=== PATIENT | female | born 1955 | race Caucasian/White ===

== ENCOUNTER 2017-02-01 03:12 | Inpatient (IN) ==
[2017-02-01] MEDS ORDERED: SODIUM CHLORIDE 0.9% 2,450 ML IV ONE (03:36)
[2017-02-01] MEDS ORDERED: KETAMINE 500 MG/10 ML VIAL IV STA (03:36)
[2017-02-01] MEDS ORDERED: KETAMINE 500 MG/10 ML VIAL ONE (03:37)
[2017-02-01] MEDS ORDERED: CEFEPIME 2,000 MG in SODIUM CHLORIDE 0.9% 100 ML IV STA (03:41)
[2017-02-01] MEDS ORDERED: NOREPINEPHRINE 4 MG/4 ML VIAL IV ONE ×2 (03:58→13:09)
[2017-02-01] MEDS ORDERED: NOREPINEPHRINE 8 MG in SODIUM CHLORIDE 0.9% 242 ML IV SCH (04:00)
[2017-02-01] MEDS ORDERED: SUCCINYLCHOLINE 200 MG/10 ML VIAL IV STA (04:01)
[2017-02-01] MEDS ORDERED: ETOMIDATE 20 MG/10 ML VIAL IV STA (04:01)
[2017-02-01 04:04] LABS: Basophils % 0.2 % (0.0-0.8); Hematocrit 41.2 VOL% (35.7-47.0); Hemoglobin 13.4 GM/DL (12.0-16.0); Immature Granulocytes % 0.7 %; Immature Granulocytes Absolute 0.08 #; Lymphocytes # 2.2 10*3/uL (1.4-4.0); Lymphocytes % 18.5 % (21.3-54.2); Mean Corpuscular HGB Conc 32.5 GM/DL (32-36); Mean Corpuscular Hemoglobin 32 PG (27-34); Mean Corpuscular Volume 99.5 FL (87-102); Mean Platelet Volume 11.3 FL (9.6-12.0); Monocytes # 0.5 10*3/uL (0.11-0.8); Monocytes % 4.5 % (1.7-12.7); Neutrophils # 9.2 10*3/uL (1.4-7.4); Neutrophils % 76.1 % (38.7-73.9); Platelet Count 165 T/CUMM (130-400); Red Blood Count 4.14 MC/CUMM (3.8-5.5); Red Cell Distribution Width 13.8 % (9.3-17.3); White Blood Count 12.1 T/CUMM (4-12)
[2017-02-01 04:14] LABS: ABG Base Excess -6.5 MMOL/L (-2.5-2.5); ABG HCO3 17.5 MMOL/L (20-26); ABG Oxygen Saturation 96.7 % (95-100); ABG PCO2 30.6 MM HG (35-48); ABG PH 7.376 (7.35-7.45); ABG PO2 94.2 MM HG (80-95); ABG TCO2 18.5 MMOL/L (23-27)
[2017-02-01] MEDS ORDERED: SUCCINYLCHOLINE 200 MG/10 ML VIAL ONE (04:14)
[2017-02-01] MEDS ORDERED: ETOMIDATE 20 MG/10 ML VIAL IV ONE (04:14)
[2017-02-01 04:15] LABS: Lactic Acid 6.4 MMOL/L (0.4-2.0)
[2017-02-01 04:17] LABS: Amorphous Crystals,Urine Occasional /HPF (Few); Apearance,Urine CLOUDY (Clear); Bacteria,Urine Occasional /HPF (Few); Bilirubin,Urine Negative (Negative); Blood, Urine Negative (Negative); Glucose,Urine (UA) 50 mg/dL (Negative); Hyaline Casts,Urine 10 /LPF (0-3); Ketones,Urine 20 mg/dL (Negative); Mucus,Urine Occasional /LPF (Occasional); Nitrite,Urine Negative (Negative); Protein,Urine 100 MG/DL; RBC,Urine 1 /HPF (0-4); Squamous Epithelial Cell,Urine Occasional /HPF (0-10); Urine Color Yellow (Yellow); WBC,Urine 4 /HPF (0-6)
[2017-02-01 04:20] LABS: Albumin 3.4 G/DL (3.4-5.0); Calcium 8.5 MG/DL (8.5-10.1); Potassium 5.1 MMOL/L (3.5-5.1); Total Protein 7.1 G/DL (6.4-8.3)
[2017-02-01] MEDS ORDERED: VECURONIUM 10 MG VIAL IV ONE (04:22)
[2017-02-01] MEDS ORDERED: VECURONIUM 10 MG VIAL IV STA (04:24)
[2017-02-01] MEDS ORDERED: VANCOMYCIN INJ 1,250 MG in SODIUM CHLORIDE 0.45% 250 ML IV SCH (04:30)
[2017-02-01] MEDS ORDERED: GLUCAGON 1 MG VIAL IM PRN (05:06)
[2017-02-01] MEDS ORDERED: DEXTROSE 50% 25 GM/50 ML VIAL IV PRN (05:06)
[2017-02-01] MEDS ORDERED: ONDANSETRON 4 MG/2 ML VIAL IV PRN (05:06)
[2017-02-01] MEDS ORDERED: ALBUTEROL 2.5 MG/3 ML NEB RESP TX PRN (05:06)
[2017-02-01] MEDS ORDERED: MIDAZOLAM 2 MG/2 ML VIAL IV ONE (05:06)
[2017-02-01] MEDS ORDERED: PANTOPRAZOLE 40 MG VIAL IV SCH (05:30)
[2017-02-01] MEDS: INSULIN REGULAR 100 UNIT/ML SUBCUT SCH ×3 (06:40→18:05)
[2017-02-01] MEDS ORDERED: SODIUM CHLORIDE 0.9% 1,000 ML IV SCH ×2 (07:00→12:00)
[2017-02-01] MEDS ORDERED: PHENYLEPHRINE DRIP 40 MG/250 ML PREMIX IV SCH ×2 (07:30)
[2017-02-01] MEDS ORDERED: LEVOFLOXACIN INJ 750 MG in PREMIX 1 EACH IV SCH ×2 (08:00→10:00)
[2017-02-01] MEDS ORDERED: PHENYLEPHRINE INJ 160 MG in SODIUM CHLORIDE 0.9% 234 ML IV SCH (08:30)
[2017-02-01 08:34] LABS: ABG Base Excess -10.3 MMOL/L (-2.5-2.5); ABG HCO3 16.1 MMOL/L (20-26); ABG Oxygen Saturation 82.5 % (95-100); ABG PCO2 55.3 MM HG (35-48); ABG PO2 61.5 MM HG (80-95); ABG TCO2 17.8 MMOL/L (23-27)
[2017-02-01 08:36] LABS: ABG PH 7.151 (7.35-7.45)
[2017-02-01] MEDS ORDERED: SODIUM BICARBONATE 50 MEQ/50 ML SYRINGE IV ONE ×2 (08:37)
[2017-02-01] MEDS ORDERED: ENOXAPARIN 40 MG/0.4 ML SYRINGE SUBCUT SCH (09:00)
[2017-02-01] MEDS ORDERED: VASOPRESSIN 100 UNITS in SODIUM CHLORIDE 0.9% 95 ML IV SCH (09:00)
[2017-02-01] MEDS: AZTREONAM 2,000 MG in SYRINGE 1 EACH IV SCH ×3 (10:02→23:45)
[2017-02-01] MEDS: HYDROCORTISONE 100 MG VIAL IV SCH ×2 (10:05→18:07)
[2017-02-01] MEDS: PHENYLEPHRINE INJ 160 MG in SODIUM CHLORIDE 0.45% 250 ML IV SCH ×3 (10:11→16:42)
[2017-02-01] MEDS: NOREPINEPHRINE 16 MG in SODIUM CHLORIDE 0.9% 234 ML IV SCH ×2 (10:12→16:42)
[2017-02-01] MEDS ORDERED: SODIUM CHLORIDE 0.9% 2,000 ML IV ONE (10:14)
[2017-02-01] MEDS: SODIUM CHLORIDE 0.9% 1,000 ML IV SCH ×2 (11:24→13:24)
[2017-02-01] MEDS ORDERED: DEXTROSE 10% 1,000 ML IV SCH (12:00)
[2017-02-01] MEDS ORDERED: ASPIRIN EC 81 MG TABLET PO SCH (17:00)
[2017-02-01 17:42] LABS: INR 3.1
[2017-02-01 17:43] LABS: PT Patient Result 31.7 SECS
[2017-02-01 18:13] LABS: Lactic Acid 9.7 MMOL/L (0.4-2.0)
[2017-02-01 18:25] LABS: Albumin 1.7 G/DL (3.4-5.0); Osmolality,Calculated 301.1 MOS/KG (273-304); Potassium 5.5 MMOL/L (3.5-5.1); Total Protein 3.4 G/DL (6.4-8.3)
[2017-02-01 18:27] LABS: Calcium 5.7 MG/DL (8.5-10.1)
[2017-02-01] MEDS ORDERED: CALCIUM CHLORIDE 1,000 MG/10 ML SYRINGE IV ONE (18:30)
[2017-02-01] MEDS ORDERED: ENOXAPARIN 30 MG/0.3 ML SYRINGE SUBCUT SCH (18:30)
[2017-02-01] MEDS ORDERED: ALBUMIN 25% 25 GM in PREMIX 1 EACH IV SCH (18:30)
[2017-02-01] MEDS ORDERED: DOBUTamine 500 MG/250 ML PREMIX IV SCH (18:30)
[2017-02-01] MEDS ORDERED: SODIUM CHLORIDE 0.9% 1,000 ML IV PRN ×2 (18:32→18:33)
[2017-02-01 20:56] VITALS: BP 125/18
[2017-02-01 20:56] LABS: ABG Base Excess -19.9 MMOL/L (-2.5-2.5); ABG HCO3 14.6 MMOL/L (20-26); ABG Oxygen Saturation 20.5 % (95-100); ABG TCO2 17.4 MMOL/L (23-27); Allen Test Positive; Pt O2 Delivery Device Ventilator
[2017-02-01 20:58] LABS: ABG PCO2 91.6 MM HG (35-48); ABG PO2 18.4 MM HG (80-95)
[2017-02-02] MEDS ORDERED: VANCOMYCIN INJ 1,250 MG in SODIUM CHLORIDE 0.45% 250 ML IV SCH (05:00)
== END 2017-02-01 21:15 | disposition expired | DRG 871 ==
LOC: EDUNIT# → EDBD → N.ED 03:12 → N.EDINP 05:08 → N.CC 06:03
PROVIDERS: ADMIT Internal Medicine; ATTEND Internal Medicine